=== PATIENT | male | born 1980 | race Caucasian/White ===

== ENCOUNTER → 2020-01-03 | Emergency (ER) | payer OTHER ==
[~2020-01-03] VITALS: Ht 193 cm; Wt 99.8 kg
[~2020-01-03] MED LIST: LIDOCAINE 1% HCL (LOCAL ANESTH.) INJ 20ML MDV IJ ONE; MIDAZOLAM HCL 5 MG/ML-1ML VIAL IV ONE; MORPHINE SULFATE 4 MG/ML SYR/VIAL IV ONE; ONDANSETRON HCL 4 MG/2 ML VIAL IV ONE; fentaNYL CITRATE 100 MCG/2 ML VL IV ONE
[2020-01-04 06:04] VITALS: BP 145/76
== END | disposition home or self-care (01) ==
LOC: ER 22:01
DX: S42.92XA Fracture of left shoulder girdle, part unspecified, initial encounter for closed fracture (principal); S43.005A Unspecified dislocation of left shoulder joint, initial encounter; W19.XXXA Unspecified fall, initial encounter; Y93.89 Activity, other specified; Y92.89 Other specified places as the place of occurrence of the external cause; Y99.8 Other external cause status
CPT/HCPCS: 23650; 73020; 73030; 96374; 96375; J2001; J2250; J2405